=== PATIENT | female | born 1985 | race Caucasian/White ===

== ENCOUNTER 2017-11-27 00:01 | Emergency (ER) | payer SELFPAY ==
[~2017-11-27] VITALS: Ht 154.9 cm; Wt 59.5 kg
[2017-11-27 00:19] VITALS: BP 124/76
--- NOTE | 2017-11-27 00:24 | NUR ---
PT TAKEN TO BED 1
--- NOTE | 2017-11-27 00:45 | NUR ---
PT BIB FAMILY C/O LLQ ABD PAIN X 3DAYS. PT DENIES N/V/D; SKIN IS INTACT, PALE/WARM/DRY; AAOX4, PERRL, WITH EVEN AND STEADY GAIT; LUNGS CLEAR BL, BREATHING UNLABORED; HR EVEN AND REGULAR, BL PERIPHERAL PULSES PRESENT; BS ACTIVE X4, NO TENDERNESS TO PALPATION. PT DENIES ANY FEVER, CP, SOB, OR COUGH AT THIS TIME; PT STATES 3/10 PAIN AT THIS TIME; VSS; PATIENT POSITIONED FOR COMFORT; HOB ELEVATED; BEDRAILS UP X2; BED DOWN.
[2017-11-27] MEDS ORDERED: KETOROLAC 60 MG/2 ML VIAL IM ONE (00:50)
--- NOTE | 2017-11-27 01:21 | NUR ---
DR. DOMÍNGUEZ PERFORMING PELVIC EXAM AT BEDSIDE WITH FEMALE DATA INTEGRITY CONSULTANT LES STOVER.
--- NOTE | 2017-11-27 01:32 | NUR ---
Female Loan Officer Assistant LES STOVER- accompanied female patient for Pelvic Exam BY ER MD DR DOMÍNGUEZ.
[2017-11-27] MEDS ORDERED: metroNIDAZOLE 500 MG/NS PREMIX 100 ML IV ONE (01:35)
[2017-11-27] MEDS ORDERED: cefTRIAXone 1,000 MG VIAL ONE (01:39)
[2017-11-27] MEDS ORDERED: MORPHINE SULFATE 4 MG/ML SYR IVP ONE (02:15)
[2017-11-27] MEDS ORDERED: MORPHINE SULFATE 4 MG/ML SYR ONE (02:16)
[2017-11-27 03:06] VITALS: BP 124/76
--- NOTE | 2017-11-27 03:06 | NUR ---
Patient discharged with v/s stable. Written and verbal after care instructions given and explained. Patient alert, oriented and verbalized understanding of instructions. Ambulatory with steady gait. All questions addressed prior to discharge. ID band removed. Patient advised to follow up with PMD. Rx of Doxycyline and Naprosyn given. Patient educated on indication of medication including possible reaction and side effects. Opportunity to ask questions provided and answered.
== END 2017-11-27 03:06 | disposition home or self-care (01) ==
LOC: MED 00:01
DX: N76.0 Acute vaginitis (principal); R10.2 Pelvic and perineal pain
CPT/HCPCS: 36415; 81002; 81025; 87070; 87210; 87491; 96365; 96367; 96372; 96375; 99284; J0696; J1885; J2270; J3490; J7060